=== PATIENT | female | born 1995 | race Caucasian/White ===

== ENCOUNTER 2024-11-25 09:32 | Emergency (ER) | payer MEDICAID ==
[~2024-11-25] VITALS: Ht 172.7 cm; Wt 78.0 kg
[2024-11-25 10:00] VITALS: O2SAT 99
[2024-11-25 10:31] LABS: CLARITY URINE CLEAR (CLEAR); COLOR URINE YELLOW (YELLOW); GLUCOSE URINE NEGATIVE (NEGATIVE); KETONES URINE NEGATIVE (NEGATIVE); LEUKOCYTE ESTERASE URINE NEGATIVE (NEGATIVE); NITRITE URINE NEGATIVE (NEGATIVE); OCCULT BLOOD URINE NEGATIVE (NEGATIVE); PROTEIN URINE NEGATIVE (NEGATIVE); SPECIFIC GRAVITY URINE 1.012 (1.005-1.030); UROBILINOGEN URINE 0.2 E.U./dL (0.2-1.0)
[2024-11-25 12:04] LABS: HCG SCREEN NEGATIVE
[2024-11-25 14:00] VITALS: BP 138/75; PULSE 72; RESP 18; TEMP 37.1; O2SAT 99
[2024-11-28 09:11] LABS: CHLAMYDIA TRACHOMATIS NAA Negative (Negative); NEISSERIA GONORRHOEAE NAA Negative (Negative)
[2024-11-30 08:07] LABS: *HSV 1 DNA PCR Negative (Negative); *HSV 2 DNA PCR Negative (Negative)
== END 2024-11-25 14:38 | disposition home or self-care (01) ==
LOC: ER 09:32
DX: Z20.2 Contact with and (suspected) exposure to infections with a predominantly sexual mode of transmission (principal); Z98.890 Other specified postprocedural states
CPT/HCPCS: 87491; 87529 ×2; 87591; 81003; 81025; 84703; 87210; 36415; 99284; Z7610; 99283